=== PATIENT | male | born 1975 | race Caucasian/White ===

== ENCOUNTER → 2017-10-27 12:18 | Outpatient (CLI) | payer BC ==
[~2017-10-27 12:18] MED LIST: ADOXA100 MG PO; CELEXA20 MG PO; PROTONIX40 MG PO
[2017-10-31 12:21] VITALS: BMI 23.3
== END | disposition home or self-care (01) ==
LOC: D.CT 12:00
DX: R10.31 Right lower quadrant pain (principal)

== ENCOUNTER 2017-10-28 08:25 | Inpatient (IN) | payer BC ==
[~2017-10-28] VITALS: Ht 182.9 cm; Wt 78.0 kg
--- NOTE | ~2017-10-28 | HP ---
PATIENT: FRANCISCO JAVIER ASHLEY MEDICAL RECORD: [id number] ACCOUNT: [id number] LOCATION:D.MS [id number] : 77 ADMISSION DATE: 10/28/17 PCP: LINDA ROGERS DO HISTORY AND PHYSICAL EXAMINATION HISTORY OF PRESENT ILLNESS: Walter is a 42-year-old white male that presents to the Emergency Room with increasing right lower quadrant abdominal pain. The pain started 2 days ago, was seen in the office yesterday, was complaining of some fever, nausea, pain in the right lower quadrant, had fever of 101 at home, went to the [facility] earlier in the week and tested negative for flu and strep. Had a CT head that was normal. Tick titers were negative. Tuesday with abdominal pain then. CT of the abdomen done today in the Emergency Room reveals no evidence of appendicitis. There is a finding suggestive of enterocolitis. He is not really having any diarrhea, mostly the pain. His white count is 16,000. He is admitted for IV fluids, IV antibiotics and further evaluation. PAST MEDICAL HISTORY: Significant for known anxiety and reflux. There is a family history of colon cancer. Previous surgeries include a cholecystectomy. MEDICATIONS: Home medications include citalopram 20 mg a day, clonazepam p.r.n., pantoprazole 40 mg a day and was started on some doxycycline and a Medrol Dosepak at [facility] on 10/23/2017. FAMILY HISTORY: Significant for colon cancer. SOCIAL HISTORY: The patient is . He does not smoke or drink. REVIEW OF SYSTEMS: He has had some fever up to 101 at home, some nausea. Has had a headache, but that is better. He complains of abdominal pain that is mostly right lower quadrant. No diarrhea at this time. No constipation. PHYSICAL EXAMINATION: GENERAL: Nontoxic at this time. HEENT: Sclerae nonicteric. HEART: Regular. LUNGS: Clear. ABDOMEN: Has some diffuse lower abdominal tenderness, worse on the right. EXTREMITIES: Lower extremities reveal no edema. NEUROLOGIC: Without any gross focal deficits. IMPRESSION: Enterocolitis. PLAN: IV fluids. Stool studies. Start IV Flagyl and Levaquin. Pain control. See orders for rest of plan. GI consult if no improvement. TRANSINT:[id number] Voice Confirmation ID: [id number] DOCUMENT ID: [id number] HISTORY AND PHYSICAL [id number] FRANCISCO JAVIER ASHLEY MATTHEW DO at 1928 CC: [id number] DICTATION DATE: 10/28/17 185 PROMOTIONAL MODEL: 10/28/171917 ADM IN [facility] [address] [id number]
[2017-10-28] MEDS ORDERED: PROTONIX40 MG PO (08:42)
[2017-10-28] MEDS ORDERED: CELEXA20 MG PO (08:42)
[2017-10-28] MEDS ORDERED: ADOXA100 MG PO (08:43)
[2017-10-28 09:15] LABS: BASOPHILS 0.1 % (0-2); EOSINOPHILS 0.1 % (0-7); HEMATOCRIT 46.2 % (42.0-54.0); HEMOGLOBIN 16.3 g/dL (13.5-17.5); IMMATURE GRANULOCYTES 0.4 % (0-5); LYMPHOCYTES 9.1 % (15-50); MCH 31.5 pg (26.0-34.0); MCHC 35.3 g/dL (31.0-37.0); MCV 89.2 fL (80.0-100.0); MEAN PLATELET VOLUME 11.1 fL (7.4-10.4); MONOCYTES 8.6 % (2-11); NEUTROPHILS 81.7 % (40-80); PLATELET COUNT 223 10x3/uL (130-400); RBC 5.18 10x6/uL (4.20-6.10); WBC 15.8 10x3/uL (4.8-10.8)
[2017-10-28 09:26] LABS: APPEARANCE CLEAR (CLEAR); COLOR DY (YELLOW)
[2017-10-28 09:27] LABS: BILIRUBIN NEGATIVE (NEGATIVE); GLUCOSE NEGATIVE (NEGATIVE); KETONE LARGE mg/dL (NEGATIVE); NITRITE NEGATIVE (NEGATIVE); PROTEIN 2+ mg/dL (NEGATIVE); UROBILINOGEN NORMAL (NORMAL)
[2017-10-28 09:28] LABS: AMORPHOUS SEDIMENT <1+ /lpf (NONE SEEN); BACTERIA FEW /hpf (NONE SEEN); MUCUS >1+ /lpf (NONE SEEN); RED CELLS - URINE 0-5 /hpf (0-5); WHITE CELLS - URINE OCC /hpf (0-5)
[2017-10-28 09:49] LABS: ALKALINE PHOSPHATASE 57 U/L (46-116); ALT (SGPT) 20 U/L (10-68); AMYLASE - SERUM 55 U/L (25-115); BILIRUBIN - TOTAL 0.79 mg/dL (0.2-1.3); CALC OSMOLALITY 275 mosm/kg (275-300); CALCIUM 9.2 mg/dL (8.5-10.1); CARBON DIOXIDE 27.1 mmol/L (21.0-32.0); CHLORIDE - SERUM 102 mmol/L (98-107); CREATININE - SERUM 1.1 mg/dL (0.6-1.3); GLUCOSE 108 mg/dL (74-106); LIPASE 144 U/L (73-393); POTASSIUM - SERUM 4.4 mmol/L (3.5-5.1); PROTEIN - SERUM 8.6 g/dL (6.4-8.2); SODIUM 137 mmol/L (136-145); UREA NITROGEN 15 mg/dL (7-18); eGFR NON AFRICAN AMERICAN 78 mL/min (90-120)
[2017-10-28 17:46] VITALS: BP 130/83; BMI 23.3
[2017-10-28 22:28] VITALS: BP 113/73
[2017-10-29 04:00] VITALS: BP 118/72
[2017-10-29 05:26] LABS: BASOPHILS 0.2 % (0-2); EOSINOPHILS 0.6 % (0-7); HEMATOCRIT 39.9 % (42.0-54.0); HEMOGLOBIN 13.5 g/dL (13.5-17.5); IMMATURE GRANULOCYTES 0.6 % (0-5); LYMPHOCYTES 19.4 % (15-50); MCH 30.1 pg (26.0-34.0); MCHC 33.8 g/dL (31.0-37.0); MCV 89.1 fL (80.0-100.0); MEAN PLATELET VOLUME 10.4 fL (7.4-10.4); MONOCYTES 9.8 % (2-11); NEUTROPHILS 69.4 % (40-80); PLATELET COUNT 201 10x3/uL (130-400); RBC 4.48 10x6/uL (4.20-6.10); RDW 12.7 % (11.5-14.5)
[2017-10-29 05:27] LABS: WBC 8.6 10x3/uL (4.8-10.8)
[2017-10-29 05:55] LABS: ALBUMIN 3.1 g/dL (3.4-5.0); ALKALINE PHOSPHATASE 44 U/L (46-116); ALT (SGPT) 16 U/L (10-68); BILIRUBIN - TOTAL 0.71 mg/dL (0.2-1.3); CALC OSMOLALITY 273 mosm/kg (275-300); CALCIUM 8.4 mg/dL (8.5-10.1); CHLORIDE - SERUM 103 mmol/L (98-107); GLUCOSE 89 mg/dL (74-106); POTASSIUM - SERUM 4.1 mmol/L (3.5-5.1); SODIUM 138 mmol/L (136-145); eGFR NON AFRICAN AMERICAN 87 mL/min (90-120)
[2017-10-29 05:56] LABS: UREA NITROGEN 11 mg/dL (7-18)
[2017-10-29 09:13] VITALS: BP 116/71
[2017-10-29 17:18] VITALS: BP 128/79
[2017-10-29 20:00] VITALS: BP 121/79
[2017-10-30 04:00] VITALS: BP 122/75
[2017-10-30 05:52] LABS: BASOPHILS 0.3 % (0-2); EOSINOPHILS 2.6 % (0-7); HEMATOCRIT 39.4 % (42.0-54.0); HEMOGLOBIN 13.3 g/dL (13.5-17.5); IMMATURE GRANULOCYTES 0.9 % (0-5); LYMPHOCYTES 19.3 % (15-50); MCH 29.9 pg (26.0-34.0); MCHC 33.8 g/dL (31.0-37.0); MCV 88.5 fL (80.0-100.0); MEAN PLATELET VOLUME 9.9 fL (7.4-10.4); MONOCYTES 10.1 % (2-11); NEUTROPHILS 66.8 % (40-80); PLATELET COUNT 190 10x3/uL (130-400); RBC 4.45 10x6/uL (4.20-6.10); RDW 12.6 % (11.5-14.5); WBC 7.4 10x3/uL (4.8-10.8)
[2017-10-30 06:30] LABS: ALBUMIN 2.9 g/dL (3.4-5.0); ALKALINE PHOSPHATASE 39 U/L (46-116); ALT (SGPT) 15 U/L (10-68); BILIRUBIN - TOTAL 0.54 mg/dL (0.2-1.3); CALC OSMOLALITY 276 mosm/kg (275-300); CALCIUM 8.4 mg/dL (8.5-10.1); CARBON DIOXIDE 24.6 mmol/L (21.0-32.0); CHLORIDE - SERUM 105 mmol/L (98-107); GLUCOSE 90 mg/dL (74-106); POTASSIUM - SERUM 3.8 mmol/L (3.5-5.1); PROTEIN - SERUM 6.8 g/dL (6.4-8.2); SODIUM 140 mmol/L (136-145); eGFR NON AFRICAN AMERICAN 87 mL/min (90-120)
[2017-10-30 06:34] LABS: UREA NITROGEN 7 mg/dL (7-18)
[2017-10-30 09:10] VITALS: BP 137/73
[2017-10-30 20:23] VITALS: BP 129/83
[2017-10-31 04:00] VITALS: BP 114/74
[2017-10-31 06:49] LABS: BASOPHILS 0.3 % (0-2); HEMOGLOBIN 13.5 g/dL (13.5-17.5); IMMATURE GRANULOCYTES 0.8 % (0-5); LYMPHOCYTES 21.5 % (15-50); MCH 29.9 pg (26.0-34.0); MCHC 33.8 g/dL (31.0-37.0); MCV 88.5 fL (80.0-100.0); MEAN PLATELET VOLUME 10.5 fL (7.4-10.4); MONOCYTES 9.9 % (2-11); NEUTROPHILS 64.5 % (40-80); PLATELET COUNT 223 10x3/uL (130-400); RBC 4.52 10x6/uL (4.20-6.10); RDW 12.8 % (11.5-14.5); WBC 6.3 10x3/uL (4.8-10.8)
[2017-10-31 07:12] LABS: ALBUMIN 2.9 g/dL (3.4-5.0); ALKALINE PHOSPHATASE 45 U/L (46-116); ALT (SGPT) 13 U/L (10-68); BILIRUBIN - TOTAL 0.52 mg/dL (0.2-1.3); CALC OSMOLALITY 274 mosm/kg (275-300); CALCIUM 8.4 mg/dL (8.5-10.1); CARBON DIOXIDE 25.2 mmol/L (21.0-32.0); CHLORIDE - SERUM 106 mmol/L (98-107); GLUCOSE 87 mg/dL (74-106); POTASSIUM - SERUM 3.8 mmol/L (3.5-5.1); PROTEIN - SERUM 6.8 g/dL (6.4-8.2); SODIUM 139 mmol/L (136-145); UREA NITROGEN 6 mg/dL (7-18); eGFR NON AFRICAN AMERICAN 87 mL/min (90-120)
[2017-10-31 08:05] VITALS: BP 116/74
[2017-10-31 12:01] VITALS: BP 123/79
[2017-10-31 12:21] VITALS: Ht 182.9 cm; Wt 78.0 kg
[2017-10-31 21:04] VITALS: BP 113/80
[2017-11-01 04:25] VITALS: BP 115/75
[2017-11-01 04:51] LABS: BASOPHILS 0.5 % (0-2); EOSINOPHILS 4.7 % (0-7); HEMATOCRIT 39.3 % (42.0-54.0); HEMOGLOBIN 13.8 g/dL (13.5-17.5); IMMATURE GRANULOCYTES 1.4 % (0-5); LYMPHOCYTES 20.4 % (15-50); MCH 30.8 pg (26.0-34.0); MCHC 35.1 g/dL (31.0-37.0); MCV 87.7 fL (80.0-100.0); MEAN PLATELET VOLUME 9.9 fL (7.4-10.4); MONOCYTES 10.7 % (2-11); NEUTROPHILS 62.3 % (40-80); PLATELET COUNT 214 10x3/uL (130-400); RBC 4.48 10x6/uL (4.20-6.10); RDW 12.6 % (11.5-14.5); WBC 6.7 10x3/uL (4.8-10.8)
[2017-11-01 05:13] LABS: ALKALINE PHOSPHATASE 36 U/L (46-116); ALT (SGPT) 14 U/L (10-68); BILIRUBIN - TOTAL 0.51 mg/dL (0.2-1.3); CALC OSMOLALITY 280 mosm/kg (275-300); CALCIUM 8.4 mg/dL (8.5-10.1); CARBON DIOXIDE 25.4 mmol/L (21.0-32.0); CHLORIDE - SERUM 106 mmol/L (98-107); GLUCOSE 95 mg/dL (74-106); POTASSIUM - SERUM 3.6 mmol/L (3.5-5.1); PROTEIN - SERUM 6.8 g/dL (6.4-8.2); SODIUM 142 mmol/L (136-145); eGFR NON AFRICAN AMERICAN 87 mL/min (90-120)
[2017-11-01 05:26] LABS: UREA NITROGEN 8 mg/dL (7-18)
[2017-11-01 08:08] VITALS: BP 113/69
[2017-11-01] MEDS ORDERED: LEVAQUIN750 MG PO (08:43)
[2017-11-01] MEDS ORDERED: FLAGYL500 MG PO (08:44)
[2017-11-04 03:11] LABS: OVA + PARASITE EXAM Final report (())
== END 2017-11-01 10:11 | disposition home or self-care (01) | DRG 392 ==
LOC: D.ER 08:25 → D.MS 16:38 → D.EDHOLD 16:38 → D.MS 17:12
PROVIDERS: Family Medicine
DX: K52.9 Noninfective gastroenteritis and colitis, unspecified (principal); F41.9 Anxiety disorder, unspecified; K21.9 Gastro-esophageal reflux disease without esophagitis; E86.0 Dehydration; Z90.79 Acquired absence of other genital organ(s); Z90.49 Acquired absence of other specified parts of digestive tract